=== PATIENT | male | born 1935 ===

== ENCOUNTER 2023-05-06 10:46 | Observation (INO) | payer MEDICARE, SELFPAY ==
[2023-05-06 11:45] LABS: #Monocytes 0.2 thou/uL (0.11-0.59); #Neutrophils 3.9 thou/uL (1.40-6.50); %Basophils 0.6 % (0.0-1.0); %Lymphocytes 15.2 % (21.0-51.0); %Monocytes 4.1 % (0.0-10.0); %Neutrophils 79.5 % (42.0-75.0); Hematocrit 33.2 % (42.0-52.0); Hemoglobin 11.3 g/dL (14.0-18.0); Mean Corpuscular Hemoglobin 32.2 pg (27.0-31.0); Mean Corpuscular Volume 94.6 fl (78.0-98.0); Mean Platelet Volume 10.1 fL (7.4-10.4); Platelet Count 146 10x3/uL (130-400); RBC Distribution Width 14.2 % (11.5-14.5); Red Blood Cell (RBC) Count 3.51 mill/uL (4.70-6.10); White Blood Cell (WBC) Count 4.9 10x3/uL (4.8-10.8)
[2023-05-06 11:57] LABS: ALT (SGPT) 26 U/L (8-55); AST (SGOT) 44 U/L (5-34); Albumin 4.4 g/dL (3.4-4.8); Alkaline Phosphatase 187 U/L (40-110); Anion Gap 12 mmol/L (10-20); BUN (Urea Nitrogen) 25 mg/dL (8.4-25.7); Bilirubin, Total 0.4 mg/dL (0.2-1.2); Calc. Creatinine Clearance 0 mL/min (70-130); Calcium 9.4 mg/dL (7.8-10.44); Carbon Dioxide 26 mmol/L (23-31); Chloride 99 mmol/L (98-107); Estimated GFR 62; Globulin 3.1 g/dL (2.4-3.5); Glucose 160 mg/dL (83-110); Protein, Total 7.5 g/dL (5.8-8.1); Sodium 133 mmol/L (136-145)
[2023-05-06 12:22] LABS: Troponin I Less than 0.010 ng/mL (< 0.028)
[2023-05-06 12:53] LABS: Bilirubin Negative (Negative); Blood, Urine Negative (Negative); Glucose, Urine (Dipstick) Negative (Negative); Ketone, Urine Negative (Negative); Leukocyte Negative (Negative); Nitrite Negative (Negative); Protein, Urine (Dipstick) Negative (Neg-Trace); Specific Gravity, Urine 1.015 (1.005-1.030); Urobilinogen 0.2 mg/dL (Less than 2); pH, Urine 7.5 (5.0-9.0)
[2023-05-06 12:59] LABS: Clarity Clear (Clear)
[2023-05-06 13:02] LABS: Bacteria/HPF Rare-Few HPF (None Seen); CAUTI Indications for Culture Alt mental st,lethar; RBC/HPF None Seen HPF (0-3); Squamous Epithelial 0-3 HPF (0-3); WBC/HPF 0-3 HPF (0-3)
[2023-05-06 13:03] LABS: Urine Culture Reflex No No
[2023-05-06] MEDS ORDERED: Iopamidol-370 76% 500 ML MDV (1 ML CHARGE) ONE (13:38)
[2023-05-06] MEDS ORDERED: Acetaminophen 325 MG TAB PO PRN (15:44)
[2023-05-06] MEDS ORDERED: Senokot S 8.6-50 MG TAB PO PRN (15:44)
[2023-05-06] MEDS ORDERED: hydrALAZINE 20 MG/ML VIAL SLOW IVP PRN (15:44)
[2023-05-06] MEDS ORDERED: Ondansetron ODT 4 MG TAB PO PRN (15:44)
[2023-05-06] MEDS ORDERED: Calcium Carbonate 500 MG ChewTAB PO PRN (15:44)
[2023-05-06] MEDS ORDERED: Acetaminophen 650 MG Suppository PR PRN (15:44)
[2023-05-06] MEDS ORDERED: Ondansetron PF 4 MG/2 ML Vial IVP PRN (15:44)
[2023-05-06] MEDS ORDERED: Electrolyte Replacement Protocol 1 EACH FS SCH (16:00)
[2023-05-06 17:02] VITALS: BMI 24.5
[2023-05-06] MEDS: Aspirin 81 mg Enteric Coated Tablet PO SCH (19:05)
[2023-05-06] MEDS: Melatonin 3 MG TAB PO PRN (20:19)
[2023-05-06] MEDS: Atorvastatin Calcium 40 MG TAB PO SCH (20:19)
[2023-05-07 04:19] LABS: #Monocytes 0.6 thou/uL (0.11-0.59); #Neutrophils 3.2 thou/uL (1.40-6.50); %Basophils 0.7 % (0.0-1.0); %Eosinophils 0.2 % (0.0-10.0); %Lymphocytes 30.1 % (21.0-51.0); %Neutrophils 57.5 % (42.0-75.0); Hematocrit 31.3 % (42.0-52.0); Hemoglobin 10.4 g/dL (14.0-18.0); Mean Corpuscular HGB CONC 33.2 g/dL (32.0-36.0); Mean Corpuscular Volume 96.3 fl (78.0-98.0); Mean Platelet Volume 10.1 fL (7.4-10.4); Platelet Count 154 10x3/uL (130-400); RBC Distribution Width 14.2 % (11.5-14.5); Red Blood Cell (RBC) Count 3.25 mill/uL (4.70-6.10); White Blood Cell (WBC) Count 5.6 10x3/uL (4.8-10.8)
[2023-05-07 04:27] LABS: Hemoglobin A1c 5.9 % (4.0-6.0)
[2023-05-07 04:41] LABS: Phosphorus 2.9 mg/dL (2.3-4.7)
[2023-05-07 04:42] LABS: Anion Gap 10 mmol/L (10-20); BUN (Urea Nitrogen) 22 mg/dL (8.4-25.7); Calc. Creatinine Clearance 52 mL/min (70-130); Calcium 9.1 mg/dL (7.8-10.44); Carbon Dioxide 26 mmol/L (23-31); Cardiac Risk 3.1 (Less than 4.5); Chloride 104 mmol/L (98-107); Cholesterol 174 mg/dl (< 200 Desired); Estimated GFR 72; Glucose 114 mg/dL (83-110); HDL Cholesterol 56 mg/dL (>60 Neg Risk); LDL Cholesterol, Calculated 101 mg/dL; Potassium 4.1 mmol/L (3.5-5.1); Sodium 136 mmol/L (136-145); Triglycerides 85 mg/dL (Less than 150)
[2023-05-07] MEDS: Aspirin 81 mg Enteric Coated Tablet PO SCH (10:06)
[2023-05-07] MEDS: Magnesium 2 GM/50 ML(in water) 2 GM in Premix 1 BAG IVPB SCH (10:07)
[2023-05-07 16:01] VITALS: TEMP 98.4
[2023-05-07 16:58] VITALS: BP 135/64
== END 2023-05-07 17:30 | disposition home or self-care (01) ==
LOC: ERS 10:46 → 2SW 14:55
PROVIDERS: ADMIT Family Medicine; ATTEND Internal Medicine
DX: R42 Dizziness and giddiness (principal); R11.2 Nausea with vomiting, unspecified; D64.9 Anemia, unspecified; N40.0 Benign prostatic hyperplasia without lower urinary tract symptoms
CPT/HCPCS: 36415; 70450; 70496; 70498; 70551; 80048; 80053; 80061; 81001; 83036; 83735; 84100; 84484; 85025; 93005; 96374; G0378; J3475; Q9967